=== PATIENT | female | born 2005 | race Hispanic/Latino ===

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

== ENCOUNTER 2023-05-04 15:41 | Day surgery (SDC) | payer SELFPAY ==
[2023-05-04 16:13] VITALS: BMI 29.1
[2023-05-04] MEDS ORDERED: hydrALAZINE 20 MG/ML VIAL SLOW IVP PRN (16:54)
[2023-05-04 18:44] LABS: #Monocytes 0.5 10x3/uL (0.0-1.1); #Neutrophils 6.8 10x3/uL (1.5-8.4); %Basophils 0.2 % (0.0-2.0); %Lymphocytes 23.5 % (18.0-47.0); %Monocytes 4.9 % (0.0-10.0); %Neutrophils 71.1 % (40.0-75.0); Hematocrit 31.2 % (34.9-44.5); Hemoglobin 10.6 g/dL (12.0-15.5); Mean Corpuscular Hemoglobin 30.3 pg (27.0-33.0); Mean Corpuscular Volume 89.1 fl (81.6-98.3); Mean Platelet Volume 10.3 fl (7.4-10.4); Platelet Count 268 10x3/uL (150-450); RBC Distribution Width 13.2 % (11.5-14.5); White Blood Cell (WBC) Count 9.5 10x3/uL (3.5-10.5)
[2023-05-04 18:57] LABS: ALT (SGPT) 9 U/L (8-55); AST (SGOT) 15 U/L (5-30); Albumin 3.4 g/dL (3.5-5.0); Alkaline Phosphatase 107 U/L (40-100); Anion Gap 13 mmol/L (10-20); BUN (Urea Nitrogen) 6 mg/dL (8.4-21.0); Bilirubin, Total 0.2 mg/dL (0.2-1.2); Calc. Creatinine Clearance 138 mL/min (70-130); Calcium 8.8 mg/dL (7.8-10.44); Carbon Dioxide 24 mmol/L (22-29); Chloride 105 mmol/L (98-107); Estimated GFR 106; Globulin 3.5 g/dL (2.4-3.5); Glucose 87 mg/dL (70-105); Potassium 3.8 mmol/L (3.5-5.1); Protein, Total 6.9 g/dL (6.0-8.3); Sodium 138 mmol/L (136-145)
[2023-05-04 19:03] LABS: Bilirubin Neg (Negative); Blood, Urine Negative (Negative); Clarity Clear (Clear); Glucose, Urine (Dipstick) Normal (Negative); Ketone, Urine Negative (Negative); Leukocyte 500 (Negative); Nitrite Negative (Negative); Protein, Urine (Dipstick) Negative (Neg-Trace); Specific Gravity, Urine 1.005 (1.005-1.030); Urobilinogen Normal mg/dL (Less than 2)
[2023-05-04 19:07] LABS: Creatinine, Urine 40.36 mg/dL (47-110); Protein, Urine Random Quant Less than 10 mg/dL (1-14)
[2023-05-04 19:12] LABS: Amphetamine Not Detected (NotDetected); Barbiturates Screen Not Detected (NotDetected); Benzodiazepine Screen Not Detected (NotDetected); Cocaine Metabolite Screen Not Detected (NotDetected); Methadone Not Detected (NotDetected); Methamphetamine Not Detected (NotDetected); Opiate Screen Not Detected (NotDetected); Oxycodone Screen Not Detected (NotDetected); Phencyclidine (PCP) Not Detected (NotDetected); THC/Cannabinoid Screen Not Detected (NotDetected); Tricyclic Screen Not Detected (NotDetected)
[2023-05-04 19:18] LABS: HBSAg Index 0.17 S/CO (0-0.99); HIV (1/2) Antibody/Antigen Non-Reactive (NonReactive); Hep B Surf Ag - L&D Non-Reactive S/CO (NonReactive)
[2023-05-04 19:19] LABS: Syphilis Antibody Nonreactive (Nonreactive); Syphilis Antibody Index 0.11 S/CO (<1.00 Non-Reactive)
[2023-05-04 19:20] LABS: RBC/HPF None Seen HPF (0-3)
[2023-05-04 19:21] LABS: Bacteria/HPF 1+ HPF (None Seen); CAUTI Indications for Culture Pregnancy; Mucous/LPF Rare LPF (<2+); Squamous Epithelial 0-3 HPF (0-3)
[2023-05-04 19:22] LABS: Urine Culture Reflex Yes Yes
[2023-05-05 07:46] LABS: Chlamydia by PCR, Vaginal Swab Not Detected (NotDetected); GC by PCR, Vaginal Swab Not Detected (NotDetected); Tric.vaginalis PCR,Vaginal Sw Not Detected (NotDetected)
== END 2023-05-04 22:15 | disposition home or self-care (01) ==
LOC: CSHLD/OP 15:41
PROVIDERS: ATTEND Obstetrics & Gynecology
DX: O99.891 Other specified diseases and conditions complicating pregnancy (principal); R10.30 Lower abdominal pain, unspecified; R53.81 Other malaise; O13.3 Gestational [pregnancy-induced] hypertension without significant proteinuria, third trimester; Z88.0 Allergy status to penicillin; Z3A.31 31 weeks gestation of pregnancy
CPT/HCPCS: 36415; 76815; 80053; 80306; 81001; 82570; 82950; 84156; 85025; 86762; 86780; 86850; 86900; 86901; 87086; 87480; 87491; 87510; 87591; 87660; 87661; 99285

== ENCOUNTER 2023-06-22 17:44 | Day surgery (SDC) | payer OTHER ==
[2023-06-22] MEDS ORDERED: hydrALAZINE 20 MG/ML VIAL SLOW IVP PRN (19:27)
[2023-06-22] MEDS ORDERED: Acetaminophen 500 MG TAB PO SCH (22:00)
[2023-06-22] MEDS ORDERED: Clotrimazole 2% 3 Day Vag Cr 22.2 GM TUBE VAG SCH (22:00)
[2023-06-23] MEDS ORDERED: Clotrimazole 2% 3 Day Vag Cr 22.2 GM TUBE VAG SCH (21:00)
== END 2023-06-23 00:10 | disposition home or self-care (01) ==
LOC: CSHLD/OP 17:44
PROVIDERS: ATTEND Obstetrics & Gynecology
DX: O99.891 Other specified diseases and conditions complicating pregnancy (principal); O98.813 Other maternal infectious and parasitic diseases complicating pregnancy, third trimester; O99.013 Anemia complicating pregnancy, third trimester; D64.9 Anemia, unspecified; B37.31 Acute candidiasis of vulva and vagina; R51.9 Headache, unspecified; Z3A.39 39 weeks gestation of pregnancy; Z88.0 Allergy status to penicillin; Z79.899 Other long term (current) drug therapy
CPT/HCPCS: 99283

== ENCOUNTER 2023-06-24 21:02 | Inpatient (IN) | payer MEDICAID, OTHER, SELFPAY ==
[2023-06-24 21:30] VITALS: BMI 32.8
[2023-06-24 22:02] LABS: Fetal Membranes Rupture No Membranes Rupture (No Rupture)
[2023-06-24] MEDS ORDERED: hydrALAZINE 20 MG/ML VIAL SLOW IVP PRN (22:07)
[2023-06-24] MEDS ORDERED: Acetaminophen 500 MG TAB PO SCH (22:15)
[2023-06-24] MEDS ORDERED: Lactated Ringer's 1,000 ML IV SCH (22:15)
[2023-06-25] MEDS ORDERED: Lidocaine 1% (PF) 30 ML VIAL SC PRN (00:23)
[2023-06-25] MEDS ORDERED: Methylergonovine 0.2 MG/ML VIAL IM PRN ×2 (00:23→14:42)
[2023-06-25] MEDS ORDERED: Promethazine HCl 25 MG/ML VIAL IM PRN ×2 (00:23→10:28)
[2023-06-25] MEDS ORDERED: Misoprostol 200 MCG TAB PR PRN (00:23)
[2023-06-25] MEDS ORDERED: Ondansetron PF 4 MG/2 ML Vial IVP PRN ×2 (00:23→10:28)
[2023-06-25] MEDS ORDERED: Carboprost 250 MCG/ML AMP IM PRN (00:23)
[2023-06-25] MEDS ORDERED: Tranexamic Acid 1,000 MG/10 ML VIAL IVP PRN (00:23)
[2023-06-25] MEDS ORDERED: Ibuprofen 800 MG TAB PO PRN (00:23)
[2023-06-25] MEDS ORDERED: Oxytocin 30 units/NS 500 ML 500 ML IV SCH ×3 (00:30)
[2023-06-25 00:39] LABS: Hematocrit 32.4 % (34.9-44.5); Mean Corpuscular Volume 85.5 fl (81.6-98.3); Platelet Count 273 10x3/uL (150-450); RBC Distribution Width 13.2 % (11.5-14.5); Red Blood Cell (RBC) Count 3.79 10x6/uL (3.90-5.03); White Blood Cell (WBC) Count 5.9 10x3/uL (3.5-10.5)
[2023-06-25 01:05] LABS: Syphilis Antibody Nonreactive (Nonreactive)
[2023-06-25 01:07] LABS: HBSAg Index 0.19 S/CO (0-0.99); Hep B Surf Ag - L&D Non-Reactive S/CO (NonReactive)
[2023-06-25] MEDS: Lactated Ringer's 1,000 ML IV SCH ×2 (02:00→10:30)
[2023-06-25] MEDS ORDERED: ePHEDrine Sulfate 50 MG/10 ML VIAL ONE (08:00)
[2023-06-25] MEDS ORDERED: Bupivacaine 0.25% HCL 30 ML VIAL ONE (08:00)
[2023-06-25] MEDS ORDERED: fentaNYL/Ropivacaine Epidural 100 ML ONE (09:22)
[2023-06-25] MEDS ORDERED: diphenhydrAMINE 50 MG/ML VIAL IVP PRN (10:28)
[2023-06-25] MEDS ORDERED: Lactated Ringer's 500 ML IV PRN (10:28)
[2023-06-25] MEDS ORDERED: Naloxone HCl 0.4 mg/ml Vial IVP PRN ×2 (10:28)
[2023-06-25] MEDS ORDERED: ePHEDrine Sulfate 50 MG/10 ML VIAL SLOW IVP PRN (10:28)
[2023-06-25] MEDS ORDERED: Moisturizing Cream (Eucerin) 113 GM JAR TOP PRN (10:28)
[2023-06-25] MEDS ORDERED: Acetaminophen 325 MG TAB PO PRN ×2 (10:28→14:42)
[2023-06-25] MEDS ORDERED: Communication Order-Pharmacy FS SCH (10:30)
[2023-06-25] MEDS ORDERED: fentaNYL 2 mcg/Ropivacaine 0.2% Epidural 100 ML CADD EPIDURAL SCH (10:30)
[2023-06-25] MEDS ORDERED: Milk Of Magnesia 30 ML UDCUP PO PRN (14:42)
[2023-06-25] MEDS ORDERED: Boostrix 0.5 ML (Tdap) VIAL (>/=7 yrs of age) IM ONE (14:42)
[2023-06-25] MEDS ORDERED: Misoprostol 200 MCG TAB VAG PRN (14:42)
[2023-06-25] MEDS ORDERED: Benzocaine-Menthol 82.5 ML CAN TOP PRN (14:42)
[2023-06-25] MEDS ORDERED: Bisacodyl 10 MG SUPP PR PRN (14:42)
[2023-06-25] MEDS ORDERED: hydrALAZINE 20 MG/ML VIAL SLOW IVP PRN (14:42)
[2023-06-25] MEDS ORDERED: Preparation H Ointment 28 GM TUBE PR PRN (14:42)
[2023-06-25] MEDS ORDERED: Lanolin Ointment 7 GM TUBE TOP PRN (14:42)
[2023-06-25] MEDS ORDERED: diphenhydrAMINE 25 MG CAP PO PRN (14:42)
[2023-06-25] MEDS ORDERED: Polyethylene Glycol 3350 17 GM Packet PO PRN (15:44)
[2023-06-25 19:53] LABS: HIV (1/2) Antibody/Antigen Non-Reactive (NonReactive)
[2023-06-25] MEDS: Ferrous Sulfate 325 MG TAB PO SCH (21:26)
[2023-06-25] MEDS: Ibuprofen 800 MG TAB PO SCH (21:27)
[2023-06-25] MEDS: Docusate 100 MG CAP PO SCH (21:27)
[2023-06-26] MEDS: Ibuprofen 800 MG TAB PO SCH ×3 (06:19→21:34)
[2023-06-26] MEDS: Docusate 100 MG CAP PO SCH ×2 (09:04→21:34)
[2023-06-26] MEDS: Prenatal Vitamin 1 TAB PO SCH (09:04)
[2023-06-26] MEDS: Ferrous Sulfate 325 MG TAB PO SCH ×2 (13:55→17:16)
[2023-06-27] MEDS: Ibuprofen 800 MG TAB PO SCH (06:17)
[2023-06-27 07:32] VITALS: BP 103/53; TEMP 98.5
[2023-06-27] MEDS: Ferrous Sulfate 325 MG TAB PO SCH (08:05)
[2023-06-27] MEDS: Docusate 100 MG CAP PO SCH (09:05)
[2023-06-27] MEDS: Prenatal Vitamin 1 TAB PO SCH (09:05)
== END 2023-06-27 12:45 | disposition home or self-care (01) | DRG 806 ==
LOC: CSHLD/OP 21:02 → UNDOADMIN 21:51 → CSHLD 21:51 → CSHPP 06-25 16:00
PROVIDERS: ADMIT Obstetrics & Gynecology; ATTEND Obstetrics & Gynecology
PROC: 10E0XZZ Delivery of Products of Conception, External Approach (ICD-10-PCS; principal; 2023-06-25)
PROC: 10907ZC Drainage of Amniotic Fluid, Therapeutic from Products of Conception, Via Natural or Artificial Opening (ICD-10-PCS; 2023-06-25)
PROC: 3E033XZ Introduction of Vasopressor into Peripheral Vein, Percutaneous Approach (ICD-10-PCS; 2023-06-25)
DX: O99.02 Anemia complicating childbirth (principal); O23.593 Infection of other part of genital tract in pregnancy, third trimester; Z37.0 Single live birth; O70.0 First degree perineal laceration during delivery; O48.0 Post-term pregnancy; Z3A.40 40 weeks gestation of pregnancy; Z88.0 Allergy status to penicillin; O69.81X0 Labor and delivery complicated by cord around neck, without compression, not applicable or unspecified; R51.9 Headache, unspecified; O99.892 Other specified diseases and conditions complicating childbirth
CPT/HCPCS: 51702; 84112; 85027; 86780; 86850; 86900; 86901; 87340; 87389; 87480; 87510; 87660; 99285; J2590; J7120; S0020

== ENCOUNTER 2023-08-10 07:19 | Emergency (ER) | payer MEDICAID, SELFPAY ==
[2023-08-10] MEDS ORDERED: Acetaminophen 500 MG TAB ONE (08:02)
[2023-08-10 08:04] LABS: #Monocytes 0.7 10x3/uL (0.0-1.1); #Neutrophils 9.7 10x3/uL (1.5-8.4); %Basophils 0.2 % (0.0-2.0); %Eosinophils 0.3 % (0.0-6.0); %Lymphocytes 14.4 % (18.0-47.0); %Neutrophils 78.9 % (40.0-75.0); Hematocrit 34.7 % (34.9-44.5); Hemoglobin 11.4 g/dL (12.0-15.5); Mean Corpuscular HGB CONC 32.9 g/dL (32.0-36.0); Mean Corpuscular Hemoglobin 27.4 pg (27.0-33.0); Mean Corpuscular Volume 83.4 fl (81.6-98.3); Mean Platelet Volume 10.3 fl (7.4-10.4); Platelet Count 276 10x3/uL (150-450); RBC Distribution Width 12.5 % (11.5-14.5); Red Blood Cell (RBC) Count 4.16 10x6/uL (3.90-5.03); White Blood Cell (WBC) Count 12.3 10x3/uL (3.5-10.5)
[2023-08-10 08:34] LABS: ALT (SGPT) 34 U/L (8-55); AST (SGOT) 25 U/L (5-34); Albumin 3.8 g/dL (3.5-5.0); Alkaline Phosphatase 76 U/L (40-100); Anion Gap 12 mmol/L (10-20); BUN (Urea Nitrogen) 11 mg/dL (7.0-18.7); Bilirubin, Total 0.2 mg/dL (0.2-1.2); Calc. Creatinine Clearance 0 mL/min (70-130); Calcium 8.6 mg/dL (7.8-10.44); Carbon Dioxide 24 mmol/L (22-29); Chloride 107 mmol/L (98-107); Estimated GFR 115; Globulin 2.9 g/dL (2.4-3.5); Glucose 90 mg/dL (70-105); Lipase 18 U/L (8-78); Potassium 3.3 mmol/L (3.5-5.1); Protein, Total 6.7 g/dL (6.0-8.3); Sodium 140 mmol/L (136-145)
[2023-08-10 08:46] LABS: BHCG - Serum Negative (NEGATIVE); Pregs Control Background? CLEAR/WHITE (CLR/WHITE); Pregs Control Bar Appear? YES (CONTROL BAR)
[2023-08-10 09:15] LABS: Bilirubin Neg (Negative); Blood, Urine Negative (Negative); Clarity Slightly Cloudy (Clear); Glucose, Urine (Dipstick) Normal (Negative); Ketone, Urine Negative (Negative); Leukocyte 100 (Negative); Nitrite Negative (Negative); Protein, Urine (Dipstick) Negative (Neg-Trace); Specific Gravity, Urine 1.005 (1.005-1.030); Urobilinogen Normal mg/dL (Less than 2)
[2023-08-10 09:38] LABS: CAUTI Indications for Culture Pelvic or flank pain; RBC/HPF None Seen HPF (0-3)
[2023-08-10 09:39] LABS: Bacteria/HPF 3+ HPF (None Seen)
[2023-08-10 09:40] LABS: Urine Culture Reflex Yes Yes
[2023-08-10] MEDS ORDERED: Ketorolac Tromethamine 30 MG (1 mL) VIAL ONE (09:48)
[2023-08-10] MEDS ORDERED: Potassium Chloride 20 MEQ TAB ONE (10:16)
== END 2023-08-10 10:15 | disposition home or self-care (01) ==
LOC: CSHERS 07:19
DX: N39.0 Urinary tract infection, site not specified (principal); Z55.6 Problems related to health literacy
CPT/HCPCS: 36415; 74177; 80053; 81001; 83690; 84703; 85025; 87086; 96374; J1885

== ENCOUNTER 2023-11-13 14:21 | Emergency (ER) | payer MEDICAID ==
[2023-11-13 15:06] LABS: Bilirubin Neg (Negative); Blood, Urine 150 (Negative); Clarity Slightly Cloudy (Clear); Glucose, Urine (Dipstick) Normal (Negative); Ketone, Urine Negative (Negative); Leukocyte 25 (Negative); Nitrite Negative (Negative); Protein, Urine (Dipstick) 100 mg/dl (Neg-Trace); Specific Gravity, Urine 1.015 (1.005-1.030)
[2023-11-13 15:09] LABS: Pregnancy Test - Urine (BHCG) Negative (Negative); Pregu Control Background? CLEAR/WHITE (CLR/WHITE); Pregu Control Bar Appear? YES (CONTROL BAR); Specific Gravity 1.015 (1.002-1.036)
[2023-11-13 15:20] LABS: Bacteria/HPF Rare-Few HPF (None Seen); CAUTI Indications for Culture Dysuria,urgency,freq; WBC/HPF 0-3 HPF (0-3)
[2023-11-13 15:21] LABS: Mucous/LPF Few LPF (<2+); Urine Culture Reflex No No
[2023-11-13] MEDS ORDERED: Ketorolac Tromethamine 30 MG (1 mL) VIAL ONE (15:41)
[2023-11-13 23:40] LABS: Chlamydia by PCR, Vaginal Swab Not Detected (NotDetected); GC by PCR, Vaginal Swab Not Detected (NotDetected)
== END 2023-11-13 17:00 | disposition home or self-care (01) ==
LOC: CSHERS 14:21
DX: N39.0 Urinary tract infection, site not specified (principal); N76.0 Acute vaginitis; Z55.6 Problems related to health literacy
CPT/HCPCS: 81001; 81025; 87480; 87491; 87510; 87591; 87660; 96372; 99284; J1885

== ENCOUNTER 2024-03-21 13:04 | Emergency (ER) | payer MEDICAID ==
[2024-03-21 14:19] LABS: Bilirubin Neg (Negative); Blood, Urine 50 (Negative); Clarity Cloudy (Clear); Glucose, Urine (Dipstick) Normal (Negative); Ketone, Urine Negative (Negative); Leukocyte 500 (Negative); Nitrite Negative (Negative); Protein, Urine (Dipstick) 30 mg/dl (Neg-Trace); Specific Gravity, Urine 1.015 (1.005-1.030); Urobilinogen Normal mg/dL (Less than 2); pH, Urine 6.5 (5.0-9.0)
[2024-03-21 14:27] LABS: Pregnancy Test - Urine (BHCG) Negative (Negative)
[2024-03-21 14:28] LABS: Pregu Control Background? CLEAR/WHITE (CLR/WHITE); Pregu Control Bar Appear? YES (CONTROL BAR); Specific Gravity 1.015 (1.002-1.036)
[2024-03-21] MEDS ORDERED: Ketorolac Tromethamine 30 MG (1 mL) VIAL ONE (15:17)
[2024-03-21 15:22] LABS: CAUTI Indications for Culture Dysuria,urgency,freq
[2024-03-21 15:23] LABS: Bacteria/HPF Rare-Few HPF (None Seen)
[2024-03-21 15:24] LABS: Urine Culture Reflex Yes Yes
== END 2024-03-21 16:23 | disposition home or self-care (01) ==
LOC: CSHERS 13:04
DX: N39.0 Urinary tract infection, site not specified (principal); N76.0 Acute vaginitis; B96.89 Other specified bacterial agents as the cause of diseases classified elsewhere
CPT/HCPCS: 81001; 81025; 87086; 87480; 87510; 87660; 96372; 99284; J1885

== ENCOUNTER 2024-07-10 18:30 | Emergency (ER) | payer MEDICAID, SELFPAY | END 2024-07-10 20:04 | disposition left against medical advice (07) | LOC: CSHERS 18:30 | DX: Z53.21 Procedure and treatment not carried out due to patient leaving prior to being seen by health care provider (principal) ==